=== PATIENT | male | born 1975 | race Caucasian/White ===

== ENCOUNTER 2020-12-15 11:03 | Emergency (ER) | payer BC, SELFPAY ==
[2020-12-15 11:20] VITALS: BP 185/127; PULSE 82; RESP 20; TEMP 37.1; O2SAT 98
[2020-12-15 11:30] VITALS: BP 171/109; BP 173/105
--- NOTE | 2020-12-15 11:54 | ED.GENADULT ---
HPI - General Adult General Chief complaint: Unspecified Stated complaint: High Blood Pressure Time Seen by Provider: 12/15/20 12:05 Source: patient Mode of arrival: ambulatory Limitations: no limitations History of Present Illness HPI narrative: Patient comes to [facility] with uncontrolled hypertension that has existed for years as patient has been noncompliant with medication. He has decided to get a sleeve procedure for weight loss and they has been told by the group doing the procedure that he must get his blood pressure under control and make sure his other labs are normalized. Patient had a maintenance services dispatcher that has since left the practice. Pressure here in triage is 185/127 Related Data Home Medications Medication Instructions Recorded Confirmed No Home Medications 12/15/20 12/15/20 Allergies Allergy/AdvReac Type Severity Reaction Status Date / Time No Known Allergies Allergy Verified 12/15/20 11:58 Review of Systems Review of Systems: Narrative: CONSTITUTIONAL: Denies fever, chills, sweats. EYES: Denies visual changes, redness, discharge. ENT: Denies rhinorrhea, congestion, sore throat, otalgia. CARDIOVASCULAR: Denies chest pain, palpitations, edema. RESPIRATORY: Denies dyspnea, wheezing, cough GASTROINTESTINAL: Denies abdominal pain, nausea, vomiting, diarrhea. GENITOURINARY: Denies dysuria, hematuria, abnormal discharge SKIN: Denies rash or itching. NEUROLOGIC: Denies numbness, or focal weakness. PSYCHIATRIC: Denies anxiety or depression. Elevated blood pressure PMFSH Past Medical History Medical History High cholesterol Hypertension Family History Family History Other Hypertension Social History Social History (Updated 12/15/20 @ 12:20 by Lyndsey Garcia CNP) Smoking status: Former smoker Alcohol intake: current Comments At time of signature, I agree with nursing past medical, surgical, social and family history. There is no relevant family history pertinent to the presenting complaint. Exam Narrative: Exam Narrative: GENERAL: This is a well-nourished, well-developed patient, in no distress. HEAD: normocephalic, atraumatic. EYES:. Sclera clear/white. Vision is grossly intact. EARS: External ears normal, Hearing grossly intact. NOSE: External nose normal without nasal discharge, nares without redness, no rhinorrhea. THROAT: Mucous membranes moist, NECK: Neck supple, non-tender CARDIOVASCULAR: Regular rate and rhythm without murmurs, gallops, or rubs. RESPIRATORY: Clear to auscultation. Breath sounds equal bilaterally. No wheezes, rales, or rhonchi. GASTROINTESTINAL: Abdomen soft, SKIN: warm, intact with no suspicious lesions or rash, good texture and turgor. NEURO: awake, alert, and oriented to person, place and time. There were no obvious focal neurologic abnormalities. Steady gait EXTREMITIES: Normal range of motion. BACK: Nontender without deformity Course Course Emergency Course: Patient comes here for elevation of blood pressure-once asleep procedure needs to have been under control in order to have the surgery Starting blood pressure medication that he had stopped taking a few years ago by Dr. Chadwick has agreed to see patient to today Vital Signs Vital signs: Vital Signs Temperature 98.7 F 12/15/20 11:20 Pulse Rate 82 12/15/20 11:20 Respiratory Rate 12/15/20 11:20 Blood Pressure 185/127 H 12/15/20 11:20 Pulse Oximetry 98 12/15/20 11:20 Temperature 98.7 F 12/15/20 11:20 Pulse Rate 82 12/15/20 11:20 Respiratory Rate 20 12/15/20 11:20 Blood Pressure 173/105 H 12/15/20 11:30 Pulse Oximetry 98 12/15/20 11:20 Medical Decision Making Differential Diagnosis Differential Diagnosis: Headache versus hypertension versus electrolyte abnormality Vital Signs Vital Signs: Vital Signs Temperature 98.7 F 12/15/20 11:20 P
== END 2020-12-15 12:25 | disposition home or self-care (01) ==
PROVIDERS: Emergency Provider Nurse Practitioner
DX: I10 Essential (primary) hypertension (principal); Z98.84 Bariatric surgery status; Z87.891 Personal history of nicotine dependence; E78.00 Pure hypercholesterolemia, unspecified
CPT/HCPCS: 99211; G0463